=== PATIENT | male | born 1980 ===

== ENCOUNTER 2018-10-18 06:21 | Inpatient (IN) | payer OTHER ==
[2018-10-18] VITALS (15 sets, daily range): BP systolic 103–129; BP diastolic 53–81
[~2018-10-18] VITALS: Ht 167.6 cm; Wt 87.1 kg
[~2018-10-18 06:21] MED LIST: IBUPROFEN600 MG ORAL; TRAMADOL HCL50 MG ORAL
[2018-10-18] MEDS ORDERED: ceFAZolin sod 1 GM in NS 55 ML IVPB ONE (07:00)
[2018-10-18] MEDS ORDERED: Lacri-Lube Opth Oint 3.5gm ONE (07:03)
[2018-10-18] MEDS ORDERED: Gelfoam Size TOPIC ONE (07:04)
[2018-10-18] MEDS ORDERED: Vancomycin 1gm vial IVPB ONE (07:04)
[2018-10-18] MEDS ORDERED: Thrombin 5000 units TOPIC ONE (07:04)
[2018-10-18] MEDS ORDERED: Bacitracin 50000 Units Vial ONE ×2 (07:05→08:09)
[2018-10-18] MEDS ORDERED: Bupivacaine w/Epi 0.5% 30ml Vial INJ ONE (07:05)
[2018-10-18] MEDS ORDERED: Ropivacaine 5mg/ml Vial 30ml INJ ONE (07:05)
[2018-10-18] MEDS ORDERED: Succinylcholine 20mg/ml 10ml vial ONE (07:23)
[2018-10-18] MEDS ORDERED: Zemuron 50mg/5ml Inj IV ONE (07:23)
[2018-10-18] MEDS ORDERED: fentaNYL 100 mcg/2 mL IV ONE (07:27)
[2018-10-18] MEDS ORDERED: Midazolam 2mg/2ml Inj ONE (07:27)
[2018-10-18] MEDS ORDERED: Lidocaine 1% MPF 10mg/ml 5ml ONE (07:28)
[2018-10-18] MEDS ORDERED: Heparin 5000 units/ml inj ONE (08:08)
[2018-10-18] MEDS ORDERED: Lidocaine 1% 10mg/ml/Epi 0.005mg/ml 30ml vial INJ ONE (08:09)
--- NOTE | 2018-10-18 08:20 | Anethesia Preoperative Eval ---
Anesthesia Pre-op PMH/ROS General Date of Evaluation: Oct 18, 2018 Time of Evaluation: 08:16 Anesthesiologist: Jah ASA Score: ASA 2 Mallampati Score Class I : Soft palate, uvula, fauces, pillars visible Class II: Soft palate, uvula, fauces visible Class III: Soft palate, base of uvula visible Class IV: Only hard plate visible Mallampati Classification: Class II Surgeon: Katerina Diagnosis: Lumbar radiculopathy Surgical Procedure: Anterior and posterior discectomy fusion Anesthesia History: none Family History: no anesthesia problems Allergies: Coded Allergies: No Known Allergies (Unverified , 10/18/18) Medications: see eMAR Patient NPO?: Yes NPO Date: Oct 17, 2018 NPO Time: 1800 Past Medical History Cardiovascular: Denies: HTN, CAD, [place], valve dz, arrhythmia, other Pulmonary: Denies: asthma, COPD, MABEL, other Gastrointestinal/Genitourinary: Reports: GERD; Denies: CRI, ESRD, other Neurologic/Psychiatric: Reports: depression/anxiety, other - chronic pain; Denies: dementia, CVA, TIA Endocrine: Denies: DM, hypothyroidism, steroids, other HEENT: Denies: cataract (L), cataract (R), glaucoma, [place] (L), [place] (R), other Hematology/Immune: Denies: anemia, DVT, bleeding disorder, other Musculoskeletal/Integumentary: Denies: OA, RA, DJD, DDD, edema, other Other: other - overweight PMH Narrative: as above PSxH Narrative: none Anesthesia Pre-op Phys. Exam Physician Exam Last Vital Signs Date Time Temp Pulse Resp B/P (MAP) Pulse Ox O2 Delivery O2 Flow Rate FiO2 10/18/18 07:00 Room Air 10/18/18 07:00 98.3 64 18 124/57 (79) 97 Constitutional: NAD Neurologic: CN 2-12 intact Cardiovascular: RRR, no M/R/G Respiratory: CTA Gastrointestinal: S/NT/ND Airway Exam Mallampati Score: Class II MO: full Neck: flexible ROM: full Teeth: intact Dentures: no upper, no lower Anesthesia Pre-op A/P Labs see chart Studies Pre-op Studies: EKG - NSR, CXR - WNL Risk Assessment & Plan Assessment: ASA 2 Plan: GA with ETT supine and prone position, neuromonitoring Status Change Before Surgery: No Pre-Antibiotics Drug: Ancefr 2gr. Given Within 1 Hr of Incision: Yes Time Given: 08:49 Van Tyson MD Oct 18, 2018 08:20
[2018-10-18] MEDS ORDERED: LR 1000ml ONE (08:30)
[2018-10-18] MEDS ORDERED: NS Irrig 1000ml ONE (08:30)
[2018-10-18] MEDS ORDERED: Sterile Water Irrig 1000ml IRRIG ONE (08:30)
[2018-10-18] MEDS ORDERED: Propofol 1,000mg/ 100ml btl IV ONE (08:30)
--- NOTE | 2018-10-18 08:45 | Pre-Procedure Note/Attestation ---
Pre-Procedure Note/Attestation Complete Prior to Procedure Procedure Narrative: anterrior posterior fusion with L decompression L5S1 Indications for Procedure Pre-Operative Diagnosis: discopathy l5s1 with radic Attestation I attest that I discussed the nature of the procedure; its benefits; risks and complications; and alternatives (and the risks and benefits of such alternatives ), prior to the procedure, with the patient (or the patient's legal apprenticeship representative). I attest that, if there was a reasonable possibility of needing a blood transfusion, the patient (or the patient's legal apprenticeship representative) was given the [facility] standardized written summary, pursuant to the [place] Blood Safety Act ([place] Health and Safety Code # 1645, as amended). I attest that I re-evaluated the patient just prior to the surgery and that there has been no change in the patient's H&P, except as documented below: Kahlil Borges MD Oct 18, 2018 08:45
--- NOTE | 2018-10-18 08:49 | Brief Operative Note ---
Immediate Post Operative Note Operative Note Pre-op Diagnosis: discopathy l5s1 with radic Procedure: ant post fusion with decomp L5S1 Post-op Diagnosis: same as pre-op Findings: consistent w/pre-op dx studies Surgeon: lenka Neon Pumper: susan marina Additional Surgeons: timothy Hu Anesthesiologist: howard Anesthesia: general Specimen: yes Complications: none Condition: stable Fluids: 1200 Estimated Blood Loss: volume - 150 Drains: hemovac Implant(s) used?: Yes - dual lamins,ISP, 4 web cage, rti ant plate Kahlil Borges MD Oct 18, 2018 08:49
[2018-10-18] MEDS ORDERED: Gelfoam Absorbable 1gm powder pkt TOPIC ONE (08:51)
[2018-10-18] MEDS ORDERED: Thrombin 5000 units spray kit TOPIC ONE (08:51)
--- NOTE | 2018-10-18 08:51 | NUR ---
CASE MANAGEMENT:REVIEW 38 YR OLD MALE HERE FOR ELECTIVE SURGERY SI:DISCOPATHY W/RADICULOPATHY 98.3 64 18 124/57 97% ON RA IS: TO SURGERY FOR: ANTERIOR POSTERIOR FUSION W/DECOMPRESSION L5 S1 : CURRENTLY IN SURGERY INTERQUAL CRITERIA MET
[2018-10-18] MEDS ORDERED: Morphine Sulfate 10mg/ml Inj ONE (09:13)
[2018-10-18] MEDS ORDERED: Sodium Chloride 10ml vial INJ ONE (09:13)
[2018-10-18] MEDS ORDERED: Glycopyrrolate 0.2mg/ml 1ml Vial ONE (10:47)
[2018-10-18] MEDS ORDERED: Ketorolac 30mg Inj ONE (10:47)
[2018-10-18] MEDS ORDERED: LR 1000ml 1,000 ML IVLG SCH (10:56)
[2018-10-18] MEDS ORDERED: Hydromorphone 0.5mg/0.5ml inj IVP PRN (11:00)
[2018-10-18] MEDS ORDERED: DiphenhydrAMINE 50mg/ml Inj IVP PRN (11:00)
[2018-10-18] MEDS ORDERED: Metoclopramide 10mg/2ml Inj IVP PRN ×2 (11:00→12:30)
[2018-10-18] MEDS ORDERED: Meperidine 50mg/ml Inj(FOR RIGORS ONLY) IV PRN (11:00)
[2018-10-18] MEDS ORDERED: Midazolam 2mg/2ml Inj IVP PRN (11:00)
[2018-10-18] MEDS ORDERED: Ketorolac 30mg Inj IV PRN (11:00)
[2018-10-18] MEDS ORDERED: Acetaminophen (Non formulary) 100 ML IV ONE (11:00)
[2018-10-18] MEDS ORDERED: Propofol 200mg/20ml IV ONE (11:52)
[2018-10-18] MEDS ORDERED: Milk of Magnesia 30ml Ud ORAL PRN (12:30)
--- NOTE | 2018-10-18 12:51 | Immediate Post-Op Evaluation ---
Immediate Post-Op Evalulation Immediate Post-Op Evalulation Procedure: ALIF L5-S1, posterior laminotomy with interrbody fusion L5-S1 Date of Evaluation: Oct 18, 2018 Time of Evaluation: 12:50 IV Fluids: 1300 Blood Products: none Estimated Blood Loss: 100 Urinary Output: 200 Blood Pressure Systolic: 109 Blood Pressure Diastolic: 59 Pulse Rate: 88 Respiratory Rate: 20 O2 Sat by Pulse Oximetry: 99 Temperature (Fahrenheit): 98.7 Pain Score (1-10): 1 Nausea: No Vomiting: No Complications none Patient Status: reacts, patent, extubated, none Hydration Status: adequate Van Tyson MD Oct 18, 2018 12:51
--- NOTE | 2018-10-18 14:35 | NUR ---
NURSE NOTES:RECEIVED PATIENT FR.PACU BY BED S/P ANT./POST FUSION L5-S1,SLEEPY BUT AROUSABLE,MOVING ALL EXTREMITIES,NO C/O PAIN (WAS JUST MEDICATED FR.PACU)IV SITE ON RIGHT HAND PATENT,GREEN DRAINING YELLOW URINE,HEMOVAC INTACT AND COMPRESSED WITH SEROUS DRAINAGE,ANT./POST DRSNG.C/D/I..O2 AT 2LITERS N/C.PLAN OF CARE DISCUSSED,VERBALIZED UNDERSTANDING.
[2018-10-18] MEDS ORDERED: D5 1/2NS 1,000 ML IV SCH (15:00)
--- NOTE | 2018-10-18 15:09 | Diagnostic Imaging Report ---
INDICATION: Pain, intraoperative TECHNIQUE: Intraoperative imaging Fluoroscopy time: 20.4 seconds Total dose: 0.43262 mGym2 Total number of images: 6 COMPARISON: None FINDINGS: Intraoperative images demonstrate surgical tool projected at the anterior aspect of what is presumably L5-S1 disc. Subsequent images demonstrate anterior fusion and placement of a disc spacer at L5-S1, subsequent placement of interspinous hardware posteriorly IMPRESSION: Intraoperative imaging, as described
--- NOTE | 2018-10-18 15:30 | Operative Note - Dictated ---
DATE OF OPERATION: 10/18/2018 SURGEON: Kahlil Borges MD. PAINTING MANAGER: Damon Ibarra. VASCULAR ACCESS SURGEON: Luther Hu M.D. ANESTHESIA: Van Tyson M.D. ANESTHESIA TYPE: General endotracheal anesthesia. PREOPERATIVE DIAGNOSIS: L5-S1 discopathy with advanced collapse. POSTOPERATIVE DIAGNOSIS: L5-S1 discopathy with advanced collapse. PROCEDURE: 1. Wide and radical diskectomy L5-S1. 2. Distraction of the disk space via partial osteotomy. 3. Interbody fusion using 4-web structural interbody spacer. 4. Use of local autograft as well as 15 grams of Signafuse. 5. Anterior instrumentation using RTI 36 mm sacral plate with four 28 millimeter screws. . 6. Use of fluoroscopy. 7. Neurodiagnostic monitoring. INDICATIONS: The patient is a 38-year-old with significant discopathy and mechanical back pain and radiation down to the left lower extremity. Surgical options were discussed after extensive conservative care failed. The patient was advised with regards to risks, benefits of surgery to include, but not be limited to those of bleeding, infection, damage to nerves, vessels, tendons, anesthetic risk, allergic reaction, aspiration, possibly , possible retrograde ejaculation, sexual dysfunction, pseudarthrosis, need for additional surgery, and/or incomplete resolution of symptoms was discussed. The patient elected to proceed. OPERATIVE PROCEDURE IN DETAIL: The patient was taken to the operative suite. After general endotracheal anesthesia was obtained, Gross catheter was placed. The abdomen was prepped and draped in usual sterile fashion. A anterior incision was made and a retroperitoneal exposure was carried out by Dr. Hu, the vascular surgeon. Once the retractors were put into place and the L5-S1 level was identified, spine surgical team then proceeded to perform a anterior annulotomy using a scalpel. Endplate preparation was achieved. The disk was markedly adherent and thus bulleted distractors were required to mobilize the disk. A partial osteotomy was required in the lateral aspects where there was essentially autofusion. At this point, the angled curettes were taken all the way to the posterior margin and posterior spur osteophytes and cartilaginous endplates were then removed both on the right than on the left. We were able to distract up to any 11 mm on the bulleted distractors. A bulleted distractor was then used to further allow for intradiscal spread. At this point, a 4-web 12-degree 10 mm cage was chosen. We were able to get a slightly larger trial in, however, it was under tremendous amount of tension and it was elected to only place a 10 mm which had only excellent fit, but good overall stability. The 4-web device was then chosen and centrally packed with Signafuse. Endplate curettage was performed and a high-speed drill was used to shave additional bone graft within the disk space to perforate the bony endplates to obtain good bleeding surface. At this juncture, the 4-web device was inserted, fluoroscopically verified to be in excellent position. The appropriate sized 36 millimeters sacral plate was then chosen and all screw holes were serially drilled and/or awled and the appropriate-sized screw was then inserted ( 28 mm) under fluoroscopic guidance. Once this was complete, the locking mechanism was deployed. Overall excellent bony purchase was achieved. The retractors were then removed. After irrigation was complete, vascular perfusion was verified. Final closure will be dictated separately by Dr. Hu. At the end of this procedure, sponge and needle counts were correct. Estimated blood loss for this portion of the case was 50 mL. Kahlil Sheryl Borges DR: Nathan JOB#: [id number] CC: JOVANA
--- NOTE | 2018-10-18 15:35 | NUR ---
NURSE NOTES: CAME BY TO SEE PATIENT.DR. DOMINGUEZ RETURNED CALL AND MADE AWARE RE:PATIENT NEEDS PIAN MED ORDERS.
[2018-10-18] MEDS ORDERED: PCA HYDROmorphone 30mg/30ml Syr IV PRN (16:00)
[2018-10-18] MEDS ORDERED: Rate Change PCA 1 Each MISC PRN (16:00)
--- NOTE | 2018-10-18 16:10 | Cardiology Progress Note ---
Assessment/Plan Assessment/Plan dvt ppx IS has parasthesia left upper ext but isw able to move the ext around may be related to intra op position ivf until starts on po diet [id number] Objective Last 24 Hour Vital Signs Date Time Temp Pulse Resp B/P (MAP) Pulse Ox O2 Delivery O2 Flow Rate FiO2 10/18/18 14:35 98.6 90 20 123/72 (89) 99 10/18/18 14:35 Nasal Cannula 2.0 10/18/18 14:25 97.5 75 15 125/75 100 Nasal Cannula 3 10/18/18 14:00 78 18 116/81 100 Nasal Cannula 3 10/18/18 13:45 76 14 119/74 100 Nasal Cannula 3 10/18/18 13:33 80 19 129/73 99 Nasal Cannula 3 10/18/18 13:20 94 15 119/68 99 Nasal Cannula 3 10/18/18 13:10 96 18 122/66 99 Simple Mask 6 10/18/18 13:00 91 15 119/68 99 Simple Mask 6 10/18/18 12:51 88 20 99 10/18/18 12:50 89 18 112/61 99 Simple Mask 6 10/18/18 12:46 97.8 93 20 109/53 99 Simple Mask 6 10/18/18 07:00 Room Air 10/18/18 07:00 98.3 64 18 124/57 (79) 97 Christopher Keller MD Oct 18, 2018 16:10
--- NOTE | 2018-10-18 16:45 | NUR ---
NURSE NOTES:C/O TINGLING ON RIGHT FINGERS BUT CLAIMED THAT ITS GONE AFTER HE USED THE CLINICAL RESEARCH NURSE.PATIENT AND FAMILY WAS PROVIDED RE:CLINICAL RESEARCH NURSE TEACHING,AND PAMHPLET.PATIENT VERBALIZED UNDERSTANDING. Addendum: 10/18/18 at 1931 by PAIGE GRIFFIN RN NURSE NOTES:CORRECTION FOR ABOVE NOTES:C/O TINGLING ON LEFT FINGERS.
[2018-10-18] MEDS: Docusate 100mg cap ORAL SCH (16:47)
[2018-10-18] MEDS: ceFAZolin sod 1 GM in D5W 55 ML IV SCH (17:00)
--- NOTE | 2018-10-18 18:00 | Operative Note - Dictated ---
DATE OF OPERATION: 10/18/2018 SURGEON: Kahlil Borges M.D. WET END SUPERVISOR: Damon Guillory PA-C. ANESTHESIOLOGIT: Van Tyson M.D. ANESTHESIA TYPE: General endotracheal anesthesia. PREOPERATIVE DIAGNOSES: 1. L5-S1 discopathy with left lower extremity radiculopathy. 2. Status post anterior lumbar interbody fusion L5-S1. POSTOPERATIVE DIAGNOSES: 1. L5-S1 discopathy with left lower extremity radiculopathy. 2. Status post anterior lumbar interbody fusion L5-S1. PROCEDURE: 1. Posterior spinal fusion with nonsegmental fixation (dual lamina ISP device). 2. Posterior spinal fusion L5-S1 using local autograft, allograft (Bactrim bone) as well as synthetic (Signafuse). 3. Laminectomy, left side L5-S1 with medial facetectomy. 4. Neurolysis, S1 nerve root, left side. 5. Use of operating microscope. 6. Use of fluoroscopy. 7. Neurodiagnostic monitoring. ESTIMATED BLOOD LOSS: Total of 100 mL. FLUIDS: 1200 . INDICATIONS: The patient is a very pleasant gentleman with fairly intractable back pain and radiculopathic pain, left lower extremity. Spinal fusion was recommended. The patient underwent earlier in the day an anterior fusion; however, due to the radiculopathic pain and need for posterior decompression and posterior approach was encouraged, which was to be performed on the same day. RISK NOTE: The patient was explained in detail risks, benefits of surgery to include, but not be limited to those of bleeding, infection, damage to nerves, vessels, tendons, anesthetic risk, allergic reaction, aspiration, possibly . The patient understood and wished to proceed. OPERATIVE PROCEDURE IN DETAIL: Under benefits of general anesthesia, patient was turned prone onto a radiolucent Judah frame. All bony prominences were well padded. The back was prepped and draped in usual sterile fashion. Fluoroscopically, the L5-S1 level was identified. A midline incision was marked out. The patient received 10 mL of Marcaine with epinephrine. Incision was carried out from L1 through S1 spinous processes. Subperiosteal dissection was carried out at L5 and S1. Radiographically, this level was verified. At this juncture, the interspinous ligament was removed. Endplate preparation was achieved. A 10 millimeter ISP device was chosen. At this point, attention was turned onto the left side. High-speed drill was used to decorticate the facet joint at L5-S1 and Signafuse was packed into the facet joint, which was done on the right side. At this point, the left side laminectomy was then performed using standard technique by drilling out the leading edge of lamina of L5, superior portion S1 as well as the medial facet joint. The bone graft was used for reimplantation later. At this juncture, ligamentum flavum was removed in a piecemeal fashion. The S1 nerve root was identified. There was extensive scarring and neovascularization around the L5-S1 nerve root. Meticulous neurolysis was achieved using bipolar micro scissors and micro rotund instruments. Once satisfied with the decompression of nerve roots, we were satisfied then with the neural foraminotomy, which was performed using Kerrison punches as well as micro set curettes. At this juncture, FloSeal was applied. Bone wax was applied. Meticulous hemostasis was achieved. Decortication of the lamina of L5 and S1 on the right side was achieved. A Bacterin bone strip was then laid across the top of the lamina. At this point, the ISP device was inserted from the left onto the right and it was secured in place with some manipulation. Ultimately, stable fixation was achieved. It was crimped down and compressed and locked into place fluoroscopically. It looks like it was in perfect position. The interspinous bone graft was then drilled out on the inferior portion of L5 and superior portion of S1. Bone graft material was then inserted. At this juncture, decision was made to close. Fascia was repaired using #1 Vicryl, 2-0 Vicryl, subcutaneous. Please note that a subfascial drain was placed and 2/3 of 1 gram of vancomycin was placed deep to the fascia, 1/3 of 1 gram of vancomycin above the fascia. A sterile dressing was applied. The patient was turned onto his back, awakened, extubated, and transferred to recovery room in a stable condition. Kahlil Borges M.D. DR: Nathan JOB#: [id number] CC:
--- NOTE | 2018-10-18 18:45 | NUR ---
NURSE NOTES:SEEN BY .ORDERS CARRIED OUT.
[2018-10-18] MEDS: D5 1/2NS 1,000 ML IV SCH (18:52)
[2018-10-18] MEDS ORDERED: Chloraseptic Spray 20mL Bottle ORAL PRN (19:00)
--- NOTE | 2018-10-18 19:00 | NUR ---
HAND-OFF: Report given to jennifer shine rn.patient stable.
[2018-10-18] MEDS: PCA shift volume MISC SCH (19:10)
--- NOTE | 2018-10-18 19:30 | NUR ---
NURSE NOTES: Received report from PATRICIA Young. Received pt lying in bed, AOX4, Arabic speaking mostly able to make known without any problem, pain level 8/10, no distress noted. Surgical dressing anterior and posterior C/D/I. PHYSICAL THERAPY ASSISTANT setting checked and verified. Encourage pt to use PHYSICAL THERAPY ASSISTANT for pain management. Pt verbalized understanding. Instructed pt use IS 10 times every hour while awake. Pt verbalized understanding. at bedside. Bed in lowest position and locked, side rails up x 2, call light within reach. Will continue to monitor.
--- NOTE | 2018-10-18 20:00 | NUR ---
NURSE NOTES: Original prescription for Flexeril and Suches given to . Copy inside pt chart.
--- NOTE | 2018-10-18 20:45 | Consultation ---
DATE OF CONSULTATION: 10/18/2018 CARDIOLOGY CONSULTATION AND INTERNAL MEDICINE NOTE CONSULTING PHYSICIAN: Christopher Keller M.D. REFERRING PHYSICIAN: Kahlil Borges M.D. REASON FOR REFERRAL: Postoperative medical care. HISTORY OF PRESENT ILLNESS: This is a 38-year-old gentleman, who has been evaluated by Dr. Borges and has had some problems with his spine, for which he underwent a spine surgery today and I am seeing him postoperatively for follow up. The patient at this time is experiencing most of the pain in the back postoperatively and little pain in the lower abdomen as well. He does not have any chest pain and does not have any shortness of breath. He has minimal sore throat. No palpitation, dizziness, or lightheadedness at this time. PAST MEDICAL HISTORY: Basically fairly unremarkable except for his spine issue. ALLERGIES: None. FAMILY HISTORY: Father is alive at age of 65 as well as mother, one brother, one sister, and healthy two sons and two daughters. SOCIAL HISTORY: No alcohol and no tobacco. REVIEW OF SYSTEMS: CONSTITUTIONAL: No fevers, chills, or night sweats. GASTROINTESTINAL: He does not have any nausea at this time. He has not vomited. There are no bowel movements yet postoperatively. GENITOURINARY: No discomfort on urination. PULMONARY: Denies significant coughing or wheezing. NEUROLOGIC: He has some numbness and tingling sensation in his left arm at this time, otherwise negative. PHYSICAL EXAMINATION: VITAL SIGNS: Blood pressure anywhere between 116/81 to 122/72 with heart rates in the 70s to 90 range and temperature 98.6 at this time. GENERAL: Shows to be a young gentleman, in no respiratory distress, overweight. NECK: Supple. No jugular venous distention. LUNGS: Clear to auscultation anteriorly . No wheezes or crackles noted. CARDIAC: Regular rate and rhythm. No heaves, thrills, or gallops noted. ABDOMEN: Soft. Hypoactive bowel sounds. No guarding. No rigidity. There is a surgical dressing in the lower part of the abdomen that appears clean and dry. EXTREMITIES: He has pneumatic compression stockings in place. Good distal pulses are noted on my examination. The patient is able to move his left upper extremity as well as right upper extremity on evaluation and distal lower extremities as well. LABORATORY AND DIAGNOSTIC DATA: His labs are none available postop. Preop laboratories, blood sugar of 110. Sodium 137, potassium 3.9, chloride 102, bicarb 27, BUN of 12, creatinine 0.99, and calcium is 9.0. Liver function tests are normal. TSH of 2.59, A1c of 4.2, sedimentation rate of 6, white count of 9.2, hemoglobin 16, and platelet count of 302,000. INR 1.1. PTT of 26.4. Electrocardiogram preoperative shows normal sinus rhythm. There are no other significant abnormalities although the quality of the is somewhat poor. ASSESSMENT AND PLAN: 1. A 6 mm disk bulge with moderate bilateral neural foraminal narrowing at L5-S1, now status post decompression. 2. Obesity. 3. Postoperative pain. Dr. Borges, this patient was seen in medical consultation. He is doing relatively well except for pain, which he is on pain medications for. Incentive spirometer was discussed with the patient and they used to prevent complications postoperatively. Pneumatic compression stockings for DVT prophylaxis, we will discuss. IV fluids are being administered until he starts on p.o. diet, which will occur once he is satisfactorily able to pass gas or have a bowel movement as per your recommendations. Cardiovascularly, at this time, the patient remained stable. We will follow the patient along with you. Christopher Keller M.D. DR: EBONI JOB#: [id number] CC:
[2018-10-18] MEDS: Cyclobenzaprine 10mg Tab ORAL PRN (20:56)
--- NOTE | 2018-10-18 23:00 | Consultation ---
DATE OF CONSULTATION: 10/18/2018 CONSULTING PHYSICIAN: Blaine Leyva M.D. REFERRING PHYSICIAN: Kahlil Borges M.D. REASON FOR CONSULTATION: Acute pain consult. HISTORY OF PRESENT ILLNESS: Dr. Kahlil Borges: Thank you kindly for consulting me to evaluate and render an opinion as to how to proceed in the management of the patient's acute postoperative lumbar spine pain after his multiple level lumbar spine fusion surgery with instrumentation today. The patient is a pleasant 38-year-old, gentleman, who injured his lumbar spine in a work-related injury. Today, he underwent lumbar spine fusion surgery with instrumentation via the anterior-approach and posterior-approach simultaneously. He complained significant postoperative pain. You consulted me to help with his pain control. I saw the patient at the bedside where I performed a detailed history and physical examination. I saw the patient with his and daughter, who translated Greek. I spoke with the nurse RN, Hannah, along with yourself, Dr. Borges. I performed a detailed history and physical examination. I spent over 75 minutes in consultation with an additional 30 minutes in medical record review. 1. Multiple records were reviewed including utilization review and surgical authorization by the insurance carrier, [facility] [employer] authorizing surgery as certified with authorized hospitalization. Further record review include preoperative history and physical by Dr. Darvin Hollis on 10/11/2018 along with diagnostic testing. 2. Physician progress report by Dr. Kahlil Borges dated 03/01/2018. 3. Multiple records were reviewed from today's date of surgery at [facility], dated 10/18/2018 including consent for surgical treatment, consent for anesthesia, consent for blood products, medication administration record, medication reconciliation order form, PACU record, PACU orders, anesthesia record, pre- and post anesthesia evaluation record, postoperative spine surgical orders, postop surgery report by Dr. Borges, implant log, initial nursing assessment, 24-hour medical/surgical flow sheet, guidelines of prophylactic antibiotics, guidelines for DVT prophylaxis, surgical invasive procedure check list, and perioperative nursing plan of care. PAST MEDICAL HISTORY: 1. Acute postoperative lumbar spine pain, status post lumbar spine fusion surgery with instrumentation at multiple level by Dr. Kahlil Borges on October 18, 2018. 2. Work-related injury. 3. Obesity. MEDICATIONS AT HOME: 1. NSAIDs. 2. Tramadol. 3. The patient has tolerated hydrocodone in the past. ALLERGIES: No known drug allergies. SOCIAL HISTORY: The patient is accompanied at the bedside by his and a teenage daughter. He denies tobacco or marijuana usage. He quit alcohol usage over six months ago. REVIEW OF SYSTEMS: Per Dr. Mina Hollis. FAMILY HISTORY: Noncontributory. PHYSICAL EXAMINATION: VITAL SIGNS: Age 38. Height 5 feet 6 inches, weight 180 pounds, and body mass index 31. VITAL SIGNS: Respirations 18 and oxygen saturation 98% on supplemental oxygen. Heart rate and blood pressure within normal limits. HEENT: Normocephalic and atraumatic. Nasal cannula oxygen in place. Moving all extremities x4. A 5/5 dorsiflexion and 5/5 plantar flexion in bilateral lower extremities. CHEST: Clear to auscultation. HEART: Regular rate and rhythm. ABDOMEN: Mildly distended. Tender by incision area. No rebound or guarding appreciated. Hemovac drain holding suction. EXTREMITIES: Significant discomfort with log-rolling. Moving all extremities x4. A 5/5 dorsiflexion and 5/5 plantar flexion in bilateral lower extremities. LABORATORY STUDIES: Diagnostic testing shows laboratory studies on 10/13/2018, glucose 110, sodium 137, potassium 3.9, chloride 102, bicarb 27, BUN 12, and creatinine 1.0. Calcium 9.8. Total protein 7.9. Albumin 4.7. AST 23, ALT 37, and alkaline phosphatase 63. Total bilirubin 0.6. TSH 2.6. Glycosylated hemoglobin normal at 4.2, white count 9, hematocrit 47, and platelets 302,000. INR 1.1 and PTT 26. A 12-lead EKG shows normal sinus rhythm with ventricular rate 78. No evidence for acute cardiac ischemia. MRI of the lumbar spine dated 09/16/2017 shows multiple disc bulges at L2-L3, L3-L4, L4-L5, and L5-S1 with a 6 mm disk bulge at L5-S1 contributing to moderate bilateral neural foraminal and mild spinal stenosis. IMPRESSION: 1. Acute postoperative lumbar spine pain, status post lumbar spine fusion surgery with instrumentation at multiple level by Dr. Kahlil Borges on October 18, 2018. 2. Work-related injury. 3. Obesity. TREATMENT RECOMMENDATIONS: I spoke with the hospital pharmacist, Benjamín, and placed the patient on Dilaudid STEAMTABLE ATTENDANT RAILROAD with a 0.2 mg demand dose at 10-minute lockout and a 4 mg 4-hour limit. Additionally, I have added breakthrough doses of pain medications starting with Upperco 10/325 one tablet orally every three hours p.r.n. for mild pain. I have ordered Flexeril 10 mg orally every 8 hours in case of any muscle spasm. I have ordered a breakthrough dose of Dilaudid 1 mg subcutaneously every three hours p.r.n. for severe breakthrough pain. I will place the patient on Pepcid 20 mg b.i.d. for GI ulcer prophylaxis and I have also ordered p.r.n. dose of Mylanta 30 mL q.6 hours in case of any GERD symptom exacerbation. I have ordered Zofran 4 mg intravenously every 4 hours p.r.n. for nausea. The patient will remain NPO except for medications and sips currently after his ALIF procedure. Once the patient demonstrates mandaen of bowel function by evidence of positive flatus, then we will begin to increase the patient's diet. I have placed him on Catapres 0.1 mg orally every 8 hours in case of any hypertensive readings systolic blood pressure greater than 160 mmHg. I have ordered Benadryl 25 mg orally every six hours in case of any itching complaints. In case of any nausea symptoms, I have ordered Zofran 4 mg intravenously every 4 hours p.r.n. I have also encouraged incentive spirometer usage and I have asked the nursing team to place an incentive spirometer at the bedside. I will defer DVT prophylaxis to the surgeon. Blaine Leyva M.D. DR: CHAR JOB#: [id number] CC:
[2018-10-19] VITALS: BP 133/81
[2018-10-19] MEDS: HYDROmorphone 1mg/ml Carpuject SUBQ PRN ×4 (00:05→21:39)
[2018-10-19] MEDS: D5 1/2NS 1,000 ML IV SCH ×4 (00:09→19:03)
[2018-10-19] MEDS: ceFAZolin sod 1 GM in D5W 55 ML IV SCH ×2 (00:36→10:18)
[2018-10-19 04:00] VITALS: BP 139/75
[2018-10-19] MEDS: PCA shift volume MISC SCH ×2 (07:27→19:40)
--- NOTE | 2018-10-19 07:33 | NUR ---
HAND-OFF: Report given to PATRICIA Valladares. Pt in stable condition.
--- NOTE | 2018-10-19 07:50 | NUR ---
NURSE NOTES: Received patient on bed, awake. IV site intact and patent. Gross in place. SURFACE SUPERVISOR in place. Bed in low and locked position, call light in reach. Dressings dry and intact. Drain hemovac intact. No signs of respiratory distress. Room board updated, will continue to monitor.
[2018-10-19 08:00] VITALS: BP 124/83
--- NOTE | 2018-10-19 08:54 | Orthopedic Spine Progress Note ---
Ortho Spine - Progress Note Subjective Symptoms: c/o post-op back pain, improved - as compared to pre-op Objective Vital Signs: Last 24 Hour Vital Signs Date Time Temp Pulse Resp B/P (MAP) Pulse Ox O2 Delivery O2 Flow Rate FiO2 10/19/18 04:00 18 10/19/18 04:00 98.2 76 18 139/75 (96) 99 10/19/18 00:00 98.8 81 19 133/81 (98) 99 10/19/18 00:00 17 10/18/18 21:00 Nasal Cannula 2.0 10/18/18 20:00 98.6 78 17 124/73 (90) 100 10/18/18 20:00 17 10/18/18 18:15 18 10/18/18 17:45 18 10/18/18 17:15 18 10/18/18 16:55 18 10/18/18 16:35 18 10/18/18 16:20 18 10/18/18 14:35 98.6 90 20 123/72 (89) 99 10/18/18 14:35 Nasal Cannula 2.0 10/18/18 14:25 97.5 75 15 125/75 100 Nasal Cannula 3 10/18/18 14:00 78 18 116/81 100 Nasal Cannula 3 10/18/18 13:45 76 14 119/74 100 Nasal Cannula 3 10/18/18 13:33 80 19 129/73 99 Nasal Cannula 3 10/18/18 13:20 94 15 119/68 99 Nasal Cannula 3 10/18/18 13:10 96 18 122/66 99 Simple Mask 6 10/18/18 13:00 91 15 119/68 99 Simple Mask 6 10/18/18 12:51 88 20 99 10/18/18 12:50 89 18 112/61 99 Simple Mask 6 10/18/18 12:46 97.8 93 20 109/53 99 Simple Mask 6 I&O: Intake and Output 10/18/18 10/19/18 19:00 07:00 Intake Total 355 ml 1705 ml Output Total 625 ml 570 ml Balance -270 ml 1135 ml Intake IV Total 355 ml 1705 ml Output Urine Total 600 ml 550 ml Drainage Total 10 ml 20 ml Estimated Blood Loss 15 ml # Voids 1 Wound: clean, intact Drains: hemovac Neuro Status: normal Assessment Procedure Performed: ant post fusion with decomp L5S1 Plan Plan: PT, pain management, continue drain Additional Comments: advance diet when has Kahlil Ribeiro MD Oct 19, 2018 08:54
--- NOTE | 2018-10-19 09:32 | NUR ---
P.T Note: Pt c/o 01/23 headache with HOB at 30 angle. Will hold P.T until cleared from CRUZ symptoms. RN notified.
[2018-10-19] MEDS: Docusate 100mg cap ORAL SCH ×2 (10:18→17:07)
--- NOTE | 2018-10-19 10:39 | 48 Hour Post Anesthesia Eval ---
Post Anesthesia Evaluation Procedure: ALIF L5-S1, posterior laminotomy with interrbody fusion L5-S1 Date of Evaluation: Oct 19, 2018 Time of Evaluation: 10:19 Blood Pressure Systolic: 139 0: 75 Pulse Rate: 75 Respiratory Rate: 18 Temperature (Fahrenheit): 98.2 O2 Sat by Pulse Oximetry: 99 Airway: patent Nausea: No Vomiting: No Pain Intensity: 3 Hydration Status: adequate Cardiopulmonary Status: Stable Mental Status/LOC: patient returned to baseline Follow-up Care/Observations: 0 Post-Anesthesia Complications: 0 Follow-up care needed: N/A Vladimir Brantley MD Oct 19, 2018 10:39
--- NOTE | 2018-10-19 10:40 | NUR ---
NURSE NOTES: Gross catheter removed.
[2018-10-19 12:00] VITALS: BP 138/82
[2018-10-19] MEDS ORDERED: Tamsulosin 0.4mg cap ORAL SCH (12:30)
--- NOTE | 2018-10-19 15:41 | NUR ---
P.T NOTE: LATE ENTRY 1130 SITTING PROTOCOL PERFORMED AND PASSED. HEADACHE DIMINISHED FROM 6/10 TO 0/10 OVER TIME. WITH HOB ELEVATED TO 90 DEG. P.T EVALUATION COMPLETED AND TOLERATED WELL W/O HEADACHE SYMPTOMS. POC INITIATED. PLEASE REFER TO P.T EVALUATION FOR CURRENT FUNCTIONAL STATUS.
[2018-10-19 16:00] VITALS: BP 122/83
[2018-10-19] MEDS ORDERED: Bethanechol 25mg Tab ORAL SCH (16:00)
--- NOTE | 2018-10-19 18:31 | NUR ---
NURSE NOTES: Patient given tylenol for fever. Fever remains at 101.3 MD og called and message left. Awaiting any new orders. Charge nurse Chrystal made aware.
--- NOTE | 2018-10-19 18:56 | NUR ---
NURSE NOTES: Left another message for MD Borges. Awaiting call back.
--- NOTE | 2018-10-19 19:46 | Progress Note ---
DATE: 10/19/2018 ACUTE PAIN MANAGEMENT PHYSICIAN PROGRESS NOTE MEDICATIONS: Medication administration record reviewed. Medications include Restoril, Chloraseptic spray, Zofran, Narcan, Dilaudid CALENDER WIND UP TENDER, milk of magnesia, subcutaneous Dilaudid, [place], Pepcid, Colace, Benadryl, Flexeril, Catapres, Mylanta, and Tylenol. LABORATORY STUDIES: No interval laboratory studies. OBJECTIVE: Pain level 8/10 on the visual analog pain scale. The current temperature is 100.8, which is the T-max, pulse 75, respirations 18, oxygen saturation 99% on supplemental oxygen, and blood pressure 124/83. I saw the patient at the bedside with the nurse RN, Blaine. I discussed the case with the physical therapist, Josemanuel and the surgeon, Dr. Kahlil Borges. The Gross catheter was removed. I will dose the patient with Flomax to help reduce the risk for urinary retention issues. The patient still has not yet passed any flatus after his abdominal approach ALIF lumbar spine fusion surgery, we will continue the patient on NPO except for medications and sips diet without advancing until there is better evidence of confucianism of bowel function. The patient is ambulating with physical therapy. I have asked the physical therapist to leave a front wheel walker at the bedside so that the , who remains at the bedside, can help encourage the patient to ambulate. The patient is grossly neurologically intact. The surgeon, Dr. Borges, evaluated the patient earlier this morning and was pleased with his progress. Output from the Hemovac drain overnight was 20 mL. The patient continues to increase the ambulation, so we will continue to monitor the lumbar spine drain output at this time. The patient has been using his Dilaudid CALENDER WIND UP TENDER unit. I have asked the nurse to be more generous dosing the breakthrough subcutaneous Dilaudid injections while he remains NPO, to help encourage the patient to ambulate. There are no nausea symptoms. There is positive bowel sounds noted. I left the patient a prescription for [place] and Flexeril and the already dropped it off at a local pharmacy in [place], [place]. Earlier this morning, the pharmacist at the outpatient retail pharmacy contacted me to confirm the prescription. I confirmed and asked the pharmacy to expedite authorization from insurance that the medication to be dispensed in a timely fashion. We will hope that the patient may be able to discharge home in the next 48 hours depending on his bowel function status. Once the patient does start passing flatus, we will advance his diet and start trialing the oral [place] and Flexeril tablets, which will also be evaluated for home usage. Blaine Leyva M.D. DR: CHAR JOB#: [id number] CC:
--- NOTE | 2018-10-19 19:51 | NUR ---
HAND-OFF: Report given to PATRICIA Snell.
--- NOTE | 2018-10-19 19:55 | NUR ---
NURSE NOTES: Report taken from PATRICIA Jensen. Patient awake and in bed, A&Ox4. No signs of distress on 2L/min NC. IV c/d/i and patent, IV fluids D5 1/2 NS @150ml/hr. Both posterior/anterior surgical sites c/d/i, ice pack present on posterior are. Posterior hemovac draining serous fluid, continue to monitor. Having 7/10 pain, breakthrough dilaudid given. Patient able to log roll in bed by self, urinal at bedside. Order to advance diet one passing gas. Bed in lowest position, call light within reach.
--- NOTE | 2018-10-19 20:21 | Cardiology Progress Note ---
Assessment/Plan Assessment/Plan 1. A 6 mm disk bulge with moderate bilateral neural foraminal narrowing at L5-S1 , now status post decompression. 2. Obesity. 3. Postoperative pain. 4. post op fever dvt ppx IS use discussed with pt ivf until starts on po diet hsa walked runnign fever will check labs and blood cx and u/a watch fever curve Subjective Cardiovascular: Denies: chest pain, lightheadedness, palpitations Respiratory: Denies: shortness of breath Gastrointestinal/Abdominal: Reports: abdominal pain Genitourinary: Denies: burning Objective Last 24 Hour Vital Signs Date Time Temp Pulse Resp B/P (MAP) Pulse Ox O2 Delivery O2 Flow Rate FiO2 10/19/18 17:37 101.3 10/19/18 16:00 101.1 96 20 122/83 (96) 96 10/19/18 16:00 18 10/19/18 12:00 100.8 90 20 138/82 (100) 94 10/19/18 12:00 20 10/19/18 10:39 75 18 99 10/19/18 10:18 18 10/19/18 09:00 Nasal Cannula 2.0 10/19/18 08:00 100.8 80 20 124/83 (97) 99 10/19/18 04:00 18 10/19/18 04:00 98.2 76 18 139/75 (96) 99 10/19/18 00:00 98.8 81 19 133/81 (98) 99 10/19/18 00:00 17 10/18/18 21:00 Nasal Cannula 2.0 General Appearance: no apparent distress, alert Neck: supple Cardiovascular: normal rate, regular rhythm Respiratory/Chest: lungs clear Abdomen: soft, hypoactive bowel sounds Extremities: no swelling Intake and Output 10/18/18 10/19/18 18:59 06:59 Intake Total 355 ml 1705 ml Output Total 625 ml 570 ml Balance -270 ml 1135 ml Intake IV Total 355 ml 1705 ml Output Urine Total 600 ml 550 ml Drainage Total 10 ml 20 ml Estimated Blood Loss 15 ml # Voids 1 Christopher Keller MD Oct 19, 2018 20:21
[2018-10-19 21:00] VITALS: BP 122/77
--- NOTE | 2018-10-19 22:16 | Operative Note - Dictated ---
DATE OF OPERATION: 10/18/2018 VASCULAR SURGEON: Luther Hu M.D. SPINE SURGEON: Kahlil Borges M.D. PREOPERATIVE DIAGNOSIS: Lumbar pain. POSTOPERATIVE DIAGNOSIS: Lumbar pain. PROCEDURE PERFORMED: Anterior retroperitoneal exposure of L5-S1 vertebral interspace. INDICATIONS: The patient is a very pleasant gentleman who was seen in my office prior to surgery. He was made aware of the risks of surgery, possibly vascular injury, deep venous thrombosis, and bleeding complications were described. He understands these risks of surgery and does wish to proceed. DESCRIPTION OF FINDINGS: A low vertical midline incision was used. Left retroperitoneal approach was used. There was no peritoneal or ureteral violation. There was no vascular injury. Exposure of L5-S1 was obtained below the iliac bifurcation and confirmed using fluoroscopy. On completion, the peritoneum and ureter intact were intact and iliac vessels were intact. DESCRIPTION OF PROCEDURE: The patient was taken to the operative room. General anesthesia was used. IV antibiotics were given. The patient's abdomen was prepped and draped. Appropriate time-out for procedures were taken. A low vertical midline incision was made infraumbilically, the anterior fascia was incised longitudinally midline. A plane was identified posterior to the left rectus abdominis developed posterolaterally towards the patient's left. The retroperitoneal space entered below the arcuate line. The peritoneum and ureter were mobilized towards the patient's right exposing the left common iliac artery and vein. Dissection was carried on undersurface of left common iliac vein. The middle sacral artery and vein were ligated with vascular clips and divided and this allowed to expose anterior surface of L5 and S1. The Omni retractor was set in place. Fluoroscopy was then used to confirm the appropriate level. Instrumentation was performed at L5-S1, dictated separately. Upon completion, retractor was gently removed. Peritoneum and ureter were intact. Iliac vessels are intact. Anterior fascia was then closed using #1 PDS in a running fashion and the skin and subcutaneous tissue were closed with 3-0 Vicryl and 4-0 Monocryl in a running subcuticular fashion. The patient tolerated the procedure well. Blood loss was less than 50 mL. Complications are none. Luther Hu M.D. DR: SANDRA JOB#: [id number] CC:
[2018-10-20] VITALS: BP 125/76
[2018-10-20] MEDS: D5 1/2NS 1,000 ML IV SCH ×3 (02:26→17:25)
[2018-10-20] MEDS: HYDROmorphone 1mg/ml Carpuject SUBQ PRN ×3 (02:31→21:49)
--- NOTE | 2018-10-20 02:49 | NUR ---
NURSE NOTES: Patient had episode of nausea with minimal vomitting. Given zofran.
--- NOTE | 2018-10-20 02:50 | NUR ---
NURSE NOTES: Urine sample collected and taken to lab.
[2018-10-20 04:00] VITALS: BP 121/74
--- NOTE | 2018-10-20 04:46 | NUR ---
NURSE NOTES: MD came in to see patient. Removed hemovac. Ordered DC VASCULAR PHYSICIAN once syringe is empty.
[2018-10-20] MEDS: Cyclobenzaprine 10mg Tab ORAL PRN (04:50)
--- NOTE | 2018-10-20 06:01 | Progress Note ---
DATE: 10/20/2018 ACUTE PAIN MANAGEMENT PHYSICIAN PROGRESS NOTE MEDICATIONS: Medication administration record reviewed. Medications include IV fluids, Colace, Pepcid, and Dilaudid HOME DESIGNER. PRN medications include Restoril, Tylenol, milk of magnesia, Narcan, Benadryl, Chloraseptic spray, Catapres, Flexeril, [place], Zofran, Mylanta, and Dilaudid. LABORATORY STUDIES: No interval laboratory studies. OBJECTIVE: VITAL SIGNS: Currently afebrile, T-max 100.8 last night at 9 p.m. I saw the patient at bedside with the nurse, Tin, who interpreted Turkish. The patient has been ambulating a bit out of bed with a walker at the bedside with assistance. He appears neurologically intact. He has been moderately compliant with incentive spirometer. With his recent fevers, I did encourage more aggressive usage of the breathing exercises. The patient still has not yet passed positive flatus. Therefore, he will continue on his current diet, which is NPO except for medications and sips. We still await return of bowel function with flatus after his ALIF surgical procedure. I discussed the case with the surgeon, Dr. Kahlil Borges. We will continue ambulating the patient with physical therapy as tolerated. With the nurse, Tin at the bedside, the patient was turned to the right lateral decubitus position. I examined the lumbar spine wound. The dressing appeared clean and dry. I removed the dressing over the drain site. Output from the drain was less than 20 mL for the past 18 hours. There was no evidence of erythema or exudate at the drain hole site. With the Hemovac drain taken off of suction, end-expiration, I personally removed the indwelling lumbar spine drain catheter. The tip was intact. Alcohol swab was applied generously to the drain hole site. Finally, a 3 x 3 island border gauze dressing was applied over the drain hole site. There were no complications. Blaine Leyva M.D. DR: LONNIE JOB#: [id number] CC:
--- NOTE | 2018-10-20 07:29 | NUR ---
NURSE NOTES: Received bedside report from Tin GOMEZ. Pt. in bed, a/o x 4. No sign of distress. Denies pain at present. IV at right hand #20g. in placed running D5 1/2 NS at 150cc/hr. Dry dressing in placed anterior/posterior. Bed in low position, locked. Call light within reach. Will cont. to monitor.
[2018-10-20 07:35] LABS: BASOPHILS % (AUTO) 0.5 % (0.0-2.0); EOSINOPHILS % (AUTO) 0.4 % (0.0-3.0); HEMATOCRIT 38.1 % (42.0-52.0); LYMPHOCYTES % (AUTO) 12.8 % (20.0-45.0); MEAN CORPUSCULAR VOLUME 88 FL (80-99); MONOCYTES % (AUTO) 8.6 % (1.0-10.0); NEUTROPHILS % (AUTO) 77.7 % (45.0-75.0); PLATELET COUNT 219 K/UL (150-450); RED BLOOD COUNT 4.34 M/UL (4.70-6.10); RED CELL DISTRIBUTION WIDTH 11.1 % (11.6-14.8); WHITE BLOOD COUNT 10.3 K/UL (4.8-10.8)
--- NOTE | 2018-10-20 07:36 | NUR ---
HAND-OFF: Report given to PATRICIA Massey Patient in stable conditio.
[2018-10-20 08:00] VITALS: BP 145/64
[2018-10-20 08:25] LABS: ALANINE AMINOTRANSFERASE 34 U/L (12-78); ALBUMIN 3.1 G/DL (3.4-5.0); ALBUMIN/GLOBULIN RATIO 0.9 (1.0-2.7); ALKALINE PHOSPHATASE 61 U/L (46-116); ANION GAP 5 mmol/L (5-15); ASPARTATE AMINO TRANSFERASE 27 U/L (15-37); BILIRUBIN,TOTAL 0.9 MG/DL (0.2-1.0); BLOOD UREA NITROGEN 5 mg/dL (7-18); CALCIUM 8.4 MG/DL (8.5-10.1); CARBON DIOXIDE 29 MMOL/L (21-32); CHLORIDE 99 MMOL/L (98-107); CREATININE 0.8 MG/DL (0.55-1.30); POTASSIUM 3.5 MMOL/L (3.5-5.1); SODIUM 133 MMOL/L (136-145)
[2018-10-20] MEDS: Docusate 100mg cap ORAL SCH ×2 (09:31→18:12)
[2018-10-20] MEDS: HYDROcodone/Acetamin 10/325 tab ORAL PRN ×3 (09:32→19:58)
--- NOTE | 2018-10-20 11:04 | Orthopedic Spine Progress Note ---
Ortho Spine - Progress Note Subjective Symptoms: c/o post-op neck pain, improved - as compared to pre-op Objective Vital Signs: Last 24 Hour Vital Signs Date Time Temp Pulse Resp B/P (MAP) Pulse Ox O2 Delivery O2 Flow Rate FiO2 10/20/18 09:00 Nasal Cannula 2.0 10/20/18 08:00 97.6 71 20 145/64 (91) 95 10/20/18 04:00 18 10/20/18 04:00 98.9 86 18 121/74 (90) 96 10/20/18 00:00 99.7 105 18 125/76 (92) 97 10/20/18 00:00 17 10/19/18 21:00 100.8 97 18 122/77 (92) 98 10/19/18 21:00 Nasal Cannula 2.0 10/19/18 20:00 18 10/19/18 17:37 101.3 10/19/18 16:00 101.1 96 20 122/83 (96) 96 10/19/18 16:00 18 10/19/18 12:00 100.8 90 20 138/82 (100) 94 10/19/18 12:00 20 I&O: Intake and Output 10/19/18 10/20/18 19:00 07:00 Intake Total 1050 ml Output Total 1050 ml 1100 ml Balance 0 ml -1100 ml Intake IV Total 1050 ml Output Urine Total 1000 ml 1100 ml Drainage Total 50 ml # Voids 1 3 Wound: clean, intact Drains: none Neuro Status: normal Assessment Procedure Performed: ant post fusion with decomp L5S1 Plan Plan: PT, pain management Additional Comments: keep npo-- no Kahlil Ribeiro MD Oct 20, 2018 11:04
[2018-10-20 12:00] VITALS: BP 118/73
--- NOTE | 2018-10-20 13:01 | NUR ---
CASE MANAGEMENT:REVIEW 10/20/18 SI: POD#2 ANT/POST FUSION W/DECOMPRESSION 99.7 105 18 125/76 97% ON 2L/NC NA-133 IS: IVF@150/HR NPO UNTIL BOWEL SOUNDS RETURN : MED/SURG STATUS 3 [facility]
--- NOTE | 2018-10-20 14:00 | NUR ---
NURSE NOTES: Assisted pt. to ambulate in the hallway 4x. Pt. tolerated activity well.
[2018-10-20 16:00] VITALS: BP 133/81
--- NOTE | 2018-10-20 18:59 | NUR ---
HAND-OFF: Report given to Tin GOMEZ. Pt. remain stable.
--- NOTE | 2018-10-20 19:10 | NUR ---
NURSE NOTES: Report taken from PATRICIA Massey. Patient is A&Ox4, awake in bed. No signs of distress on room air, NC available at bedside, continue to encourage IS use. Pain level at 5/10. Still not passing gas, showing signs of abdominal distention, MOM administered to help relieve. Surgical sites c/d/i. IV site c/d/i and patent. Told patient he is able to use the bathroom with assistance and ambualte the unit. Continue to monitor. Bed in lowest position, call light within reach.
[2018-10-20 20:00] VITALS: BP 131/91
--- NOTE | 2018-10-20 20:21 | Cardiology Progress Note ---
Assessment/Plan Assessment/Plan 1. A 6 mm disk bulge with moderate bilateral neural foraminal narrowing at L5-S1 , now status post decompression. 2. Obesity. 3. Postoperative pain. 4. post op fever dvt ppx pneumoatic stocking IS use discussed with pt ivf until starts on po diet has walked no further fever labs noted Subjective Cardiovascular: Denies: chest pain, lightheadedness, palpitations Respiratory: Denies: shortness of breath Gastrointestinal/Abdominal: Denies: abdominal pain Genitourinary: Denies: burning Objective Last 24 Hour Vital Signs Date Time Temp Pulse Resp B/P (MAP) Pulse Ox O2 Delivery O2 Flow Rate FiO2 10/20/18 16:00 98.3 73 20 133/81 (98) 93 10/20/18 12:00 98.9 78 18 118/73 (88) 92 10/20/18 09:00 Nasal Cannula 2.0 10/20/18 08:00 97.6 71 20 145/64 (91) 95 10/20/18 04:00 18 10/20/18 04:00 98.9 86 18 121/74 (90) 96 10/20/18 00:00 99.7 105 18 125/76 (92) 97 10/20/18 00:00 17 10/19/18 21:00 100.8 97 18 122/77 (92) 98 10/19/18 21:00 Nasal Cannula 2.0 General Appearance: no apparent distress, alert Neck: supple Cardiovascular: normal rate, regular rhythm Respiratory/Chest: lungs clear Abdomen: non tender, soft, hypoactive bowel sounds Extremities: no swelling Intake and Output 10/19/18 10/20/18 18:59 06:59 Intake Total 1050 ml Output Total 1050 ml 1100 ml Balance 0 ml -1100 ml Intake IV Total 1050 ml Output Urine Total 1000 ml 1100 ml Drainage Total 50 ml # Voids 1 3 Laboratory Tests Test 10/20/18 05:42 White Blood Count 10.3 K/UL (4.8-10.8) Red Blood Count 4.34 M/UL (4.70-6.10) L Hemoglobin 13.0 G/DL (14.2-18.0) L Hematocrit 38.1 % (42.0-52.0) L Mean Corpuscular Volume 88 FL (80-99) Mean Corpuscular Hemoglobin 29.9 PG (27.0-31.0) Mean Corpuscular Hemoglobin Concent 34.0 G/DL (32.0-36.0) Red Cell Distribution Width 11.1 % (11.6-14.8) L Platelet Count 219 K/UL (150-450) Mean Platelet Volume 6.3 FL (6.5-10.1) L Neutrophils (%) (Auto) 77.7 % (45.0-75.0) H Lymphocytes (%) (Auto) 12.8 % (20.0-45.0) L Monocytes (%) (Auto) 8.6 % (1.0-10.0) Eosinophils (%) (Auto) 0.4 % (0.0-3.0) Basophils (%) (Auto) 0.5 % (0.0-2.0) Sodium Level 133 MMOL/L (136-145) L Potassium Level 3.5 MMOL/L (3.5-5.1) Chloride Level 99 MMOL/L (98-107) Carbon Dioxide Level 29 MMOL/L (21-32) Anion Gap 5 mmol/L (5-15) Blood Urea Nitrogen 5 mg/dL (7-18) L Creatinine 0.8 MG/DL (0.55-1.30) Estimat Glomerular Filtration Rate > 60 mL/min (>60) Glucose Level 135 MG/DL (74-106) H Calcium Level 8.4 MG/DL (8.5-10.1) L Total Bilirubin 0.9 MG/DL (0.2-1.0) Aspartate Amino Transf (AST/SGOT) 27 U/L (15-37) Alanine Aminotransferase (ALT/SGPT) 34 U/L (12-78) Alkaline Phosphatase 61 U/L (46-116) Total Protein 6.7 G/DL (6.4-8.2) Albumin 3.1 G/DL (3.4-5.0) L Globulin 3.6 g/dL Albumin/Globulin Ratio 0.9 (1.0-2.7) L Microbiology Date/Time Source Procedure Growth Status 10/18/18 07:30 Nasal Nares MRSA Culture - Final NO METHICILLIN RESISTANT STAPH AUREUS... Complete Christopher Keller MD Oct 20, 2018 20:21
[2018-10-21] VITALS: BP 144/68
[2018-10-21] MEDS: HYDROcodone/Acetamin 10/325 tab ORAL PRN (00:25)
--- NOTE | 2018-10-21 00:30 | NUR ---
NURSE NOTES: Patient had bowel movement, advance diet per MD order.
[2018-10-21] MEDS: D5 1/2NS 1,000 ML IV SCH ×3 (00:33→13:25)
[2018-10-21 04:00] VITALS: BP 127/89
[2018-10-21] MEDS: HYDROmorphone 1mg/ml Carpuject SUBQ PRN ×2 (05:26→09:49)
--- NOTE | 2018-10-21 06:40 | NUR ---
NURSE NOTES: Report given to MD over phone. Ordered to DC IV fluids, instructed patient to increase oral intake of fluids.
--- NOTE | 2018-10-21 07:27 | NUR ---
HAND-OFF: Report given to PATRICIA Ma. Patient awake and alert, VS stable.
[2018-10-21 08:00] VITALS: BP 137/73
--- NOTE | 2018-10-21 08:17 | NUR ---
NURSE NOTES: Pt awake, New admit status from [facility]. Pt has some visible redness to lt heel, Rt heel elevated. Facility protocol will be followed
--- NOTE | 2018-10-21 08:18 | NUR ---
NURSE NOTES: Received patient awake, alert, and oriented, sitting up comfortably in bed. IV site at right hand, saline lock. Bed at lowest level with 3 side rails up. Call light within reach. In no apparent distress at this time. Will continue to monitor.
--- NOTE | 2018-10-21 08:33 | Orthopedic Spine Progress Note ---
Ortho Spine - Progress Note Subjective Symptoms: c/o post-op back pain, improved - as compared to pre-op Objective Vital Signs: Last 24 Hour Vital Signs Date Time Temp Pulse Resp B/P (MAP) Pulse Ox O2 Delivery O2 Flow Rate FiO2 10/21/18 04:00 98.1 62 18 127/89 (102) 95 10/21/18 00:00 98.5 69 18 144/68 (93) 96 10/20/18 21:00 Nasal Cannula 2.0 10/20/18 20:00 99.1 73 18 131/91 (104) 95 10/20/18 16:00 98.3 73 20 133/81 (98) 93 10/20/18 12:00 98.9 78 18 118/73 (88) 92 10/20/18 09:00 Nasal Cannula 2.0 I&O: Intake and Output 10/20/18 10/21/18 19:00 07:00 Intake Total 280 ml Output Total 1400 ml Balance -1400 ml 280 ml Intake Oral 280 ml Output Urine Total 1400 ml # Voids 3 # Bowel Movements 1 Wound: clean, intact Drains: none Neuro Status: normal Assessment Procedure Performed: ant post fusion with decomp L5S1 Plan Plan: PT, pain management, discharge to home Kahlil Borges MD Oct 21, 2018 08:33
--- NOTE | 2018-10-21 08:49 | NUR ---
error in entry Addendum: 10/21/18 at 1025 by Mervat Suh RN Wrong pt for suspected dti correction made
[2018-10-21] MEDS: Docusate 100mg cap ORAL SCH (09:49)
[2018-10-21 12:00] VITALS: BP 139/76
[2018-10-21] MEDS ORDERED: CYCLOBENZAPRINE10 MG ORAL (12:07)
[2018-10-21] MEDS ORDERED: NORCO 10-325 T1 EACH ORAL (12:07)
[2018-10-21] MEDS ORDERED: D5 1/2NS 1000ml IV ONE ×3 (13:24)
--- NOTE | 2018-10-21 13:28 | NUR ---
NURSE NOTES: Patient is discharged. IV and ID band removed. Discharge instructions given and patient and family verbalized understanding. Escorted from facility by personnel without incident or injury.
--- NOTE | 2018-10-21 13:31 | NUR ---
NURSE NOTES:WOUND CARE NOTES:Pt presented on admission with non-blanchable erythema Buttocks with dry peeling skin .Site non-tender when minimally palpated. Non-blanchable erythema L heel with purple line parallel along border.Site without induration or tenderness when palpated.Non-blanchable erythema without induration R heel. Pt is incontinent and was educated on wound prevention. Encouraged to frequently reposition in bed .Pt demonstrated ability to reposition as was instructed. Pt also instructed to notify staff when soiled to prevent prolonged exposure to incontinence. Recommendations:Apply Moisture Barrier to buttocks with each perineal care. Apply Optifoam drsg to Sacrum .Change every 3 days and prn. Apply Cavilon Skin Barrier to both heels .Cover wach heel with Optifoam drsg. Change every 7 days and prn. Encourage repostioning at least every 2hours or as tolerated. Off-load heels with pillow.
--- NOTE | 2018-10-21 18:16 | Progress Note ---
DATE: 10/21/2018 ACUTE PAIN MANAGEMENT PHYSICIAN PROGRESS NOTE MEDICATIONS: Medication administration record reviewed. Medications include Colace and Pepcid. P.r.n. medications include Restoril, Tylenol, milk of magnesia, Benadryl, Chloraseptic, Catapres, Flexeril, [place], Zofran, Mylanta, and Dilaudid. Laboratory studies from yesterday, 10/20/2018, shows normal white count of 10, hematocrit 38, and platelets 219,000. Sodium 133, potassium 3.5, chloride 99, bicarbonate 29, BUN 5, creatinine 0.8, and glucose 135. Calcium 8.4. Total bilirubin 0.9. AST 27, AST 34, and alkaline phosphatase 61. Total protein 6.7. Albumin 3.1. Vital signs within normal limits. Afebrile, pulse 80, respirations 17, blood pressure 137/73, and oxygen saturation 94% on supplemental oxygen. I saw the patient at the bedside with the nurse RN, . I discussed the case with the physical therapist, Josemanuel. The patient's is at the bedside and showed me the bottles of Flexeril and [place], which she obtained from her outpatient pharmacy after insurance authorization. The patient continues to increase his ambulation. He has been more compliant using his incentive spirometer and it has showed no fevers over the past 24 hours. The patient is still reliant on the front wheel walker and the physical therapist has recommended a raised toilet seat and a front wheel walker for home usage. The nurse will order this with the hospital patient case manager to expedite hospital discharge. Overnight, the patient had a large bowel movement after dosing with milk of magnesia. The patient has no nausea symptoms. He tolerated liquid diet and we will advance his diet at lunch time. Dr. Borges has ordered for the patient to trial discharge home if he tolerates his advanced diet for lunch time without nausea or vomiting symptoms. The patient's pain has been adequately controlled on his current analgesic regimen. I will Hep-Lock his IV fluids since he is tolerating plenty of oral intake of liquids so far. The patient will follow up in Dr. Borges's outpatient clinic for surgical followup in a couple of weeks. At this time, I agree with Dr. Borges, who saw the patient earlier this morning, for discharge trial home later today provided lunch is tolerated. Blaine Leyva M.D. DR: ESTELAYNancy JOB#: [id number] CC:
--- NOTE | 2018-10-24 14:21 | Discharge Summary ---
Discharge Summary Hospital Course Date of Admission Oct 18, 2018 at 06:21 Date of Discharge Oct 21, 2018 at 13:25 Admitting Diagnosis L5-S1 discopathy with left lower extremity radiculopathy. Reason for Hospitalization: elective surgery HPI Kimani Bridges is a 38 year old male who was admitted on Oct 18, 2018 at 06:21 for L5-S1 discopathy with left lower extremity radiculopathy. Patient was admitted for elective surgery. Consultations dr Keller - IM/cardio dr Turner - pain specialist Procedures s/p 10/18/[address] Hu ( vascular approach) Anterior retroperitoneal exposure of L5-S1 vertebral interspace s/p 10/18/[address] Borges- two stage procedure A. anterior fusion 1. Wide and radical diskectomy L5-S1. 2. Distraction of the disk space via partial osteotomy. 3. Interbody fusion using 4-web structural interbody spacer. 4. Use of local autograft as well as 15 grams of Signafuse. 5. Anterior instrumentation using RTI 36 mm sacral plate with four 28 millimeter screws. . 6. Use of fluoroscopy. 7. Neurodiagnostic monitoring. B. posterior decompression 1. Posterior spinal fusion with nonsegmental fixation (dual lamina ISP device). 2. Posterior spinal fusion L5-S1 using local autograft, allograft (Bactrim bone) as well as synthetic (Signafuse). 3. Laminectomy, left side L5-S1 with medial facetectomy. 4. Neurolysis, S1 nerve root, left side. 5. Use of operating microscope. 6. Use of fluoroscopy. 7. Neurodiagnostic monitoring. Hospital Course status post surgery ( 2 stage with anterior and then posterior approach) course of recovery uneventful initially IV fluids s/p perioperative antibiotics neurovascular status closely monitored, stable incision clean dry and intact pain management addressed pain specialist followed; pain controlled hemodynamically stable postop fever initially, use of incentive spirometry while in the bed and ambulation encouraged ambulated with PT DVT prophylaxis provided fever resolved fall precautions maintained; safe for ambulation tolerated diet , IV fluids discontinued GI prophylaxis provided antiemetics were on board as needed voided freely bowel regimen instituted patient was stable for discharge discharge instructions provided follow up with surgeon as outpatient as advised by surgeon FINAL DIAGNOSES L5-S1. 6 mm disk bulge with moderate bilateral neural foraminal narrowing at L5- S1 L5-S1 discopathy with left lower extremity radiculopathy. s/p 3/5 anterior and posterior fusion with decompression L5 S1 Obesity Discharge Medications Continued Medications: Cyclobenzaprine Hcl* (Flexeril*) 10 Mg Tablet 10 MG ORAL BID, TAB (This prescription has been renewed) Hydrocodone Bit/Acetaminophen 10-325* (Soldier 10-325*) 1 Each Tablet 1 TAB ORAL Q6H PRN for For Pain, #10 TAB 0 Refills (This prescription has been renewed) PRN PAIN Ibuprofen* (Motrin*) 600 Mg Tablet 800 MG ORAL , #30 TAB 0 Refills (This prescription has been renewed) Tramadol Hcl* (Ultram*) 50 Mg Tablet 50 MG ORAL Q6H PRN for For Pain, #30 TAB 0 Refills (This prescription has been renewed) Discharge Condition Upon Discharge: stable Discharge Disposition Patient was discharged to Home (01) Discharge Instructions Discharge Instructions Special Instructions I have been assigned to complete a D/C Summary on this account. I was not involved in the patient management Rosanna Carter NP Oct 24, 2018 14:21
== END 2018-10-21 13:25 | disposition home health service (06) | DRG 455 ==
LOC: SDSOVERFLO 06:21 → 3E 14:25
DX: M54.17 Radiculopathy, lumbosacral region (principal); R03.0 Elevated blood-pressure reading, without diagnosis of hypertension; E66.9 Obesity, unspecified; Z68.31 Body mass index [BMI] 31.0-31.9, adult; G89.18 Other acute postprocedural pain; R50.82 Postprocedural fever
CPT/HCPCS: 36415; 72020; 76000; 80053; 85025; 86850; 86900; 86901; 87040; 87081; 87086; 94003; 94150; J2250; J2405